=== PATIENT | male | born 1950 | race Caucasian/White ===

== ENCOUNTER → 2017-08-26 | Outpatient (CLI) | payer OTHER | END | disposition home or self-care (01) | LOC: NUC 06:08 | DX: R93.1 Abnormal findings on diagnostic imaging of heart and coronary circulation (principal); I48.91 Unspecified atrial fibrillation | CPT/HCPCS: 78452; 93017; A9500; J2785 ==

== ENCOUNTER 2017-09-23 10:53 | Day surgery (SDC) | payer OTHER ==
[~2017-09-23] VITALS: Ht 177.8 cm; Wt 99.0 kg
[~2017-09-23 10:53] MED LIST: AMLODIPINE BESY10 MG PO; ELIQUIS5 MG PO; GLIPIZIDE ER2.5 MG PO; HYDROCHLOROTH12.5 M3 PO; IRBESARTAN300 MG PO; JANUVIA100 MG PO; METFORMIN HCL1000 MG PO; TOPROL XL25 MG PO
== END 2017-09-23 13:18 | disposition home or self-care (01) ==
LOC: CATH 10:53
PROVIDERS: Internal Medicine Cardiovascular Disease
PROC: 5A2204Z Restoration of Cardiac Rhythm, Single (ICD-10-PCS; principal; 2017-09-23)
DX: I48.91 Unspecified atrial fibrillation (principal); I10 Essential (primary) hypertension; E78.5 Hyperlipidemia, unspecified; E11.9 Type 2 diabetes mellitus without complications; Z79.01 Long term (current) use of anticoagulants; Z79.84 Long term (current) use of oral hypoglycemic drugs; Z87.891 Personal history of nicotine dependence
CPT/HCPCS: 82948; 93005; J2250

== ENCOUNTER 2018-01-20 07:57 | Day surgery (SDC) | payer OTHER ==
[~2018-01-20] VITALS: Ht 177.8 cm; Wt 98.0 kg
[~2018-01-20 07:57] MED LIST changes: +AMIODARONE HCL200 MG PO; +ATORVASTATIN CA40 MG PO; +DILTIAZEM 24HR360 M1 PO
[2018-01-20] MEDS ORDERED: FLECAINIDE ACE100 MG PO (09:20)
== END 2018-01-20 10:02 | disposition home or self-care (01) ==
LOC: CATH 07:57
PROC: 5A2204Z Restoration of Cardiac Rhythm, Single (ICD-10-PCS; principal; 2018-01-20)
DX: I48.91 Unspecified atrial fibrillation (principal); I10 Essential (primary) hypertension; E78.5 Hyperlipidemia, unspecified; E11.9 Type 2 diabetes mellitus without complications; Z79.01 Long term (current) use of anticoagulants; Z87.891 Personal history of nicotine dependence; Z79.84 Long term (current) use of oral hypoglycemic drugs
CPT/HCPCS: 93005